=== PATIENT | female | born 1990 | race Caucasian/White ===

== ENCOUNTER 2023-05-15 17:46 | Emergency (ER) | payer OTHER, SELFPAY ==
[2023-05-15 17:50] VITALS: BP 157/103; BMI 31.1
--- NOTE | 2023-05-15 18:38 | ED.GENMED ---
History of Present Illness
<La Mahajan PA-C - Last Filed: 05/16/23 00:24>
General
Chief Complaint: Flank Pain
Source: patient
Exam Limitations: none
Time Seen by Provider: 05/15/23 18:04
Nursing documentation reviewed up to this point in time: agreed with
Travel History
Have you had any contact with someone who has COVID-19?: No
Do you have any symptoms of coronavirus? Fever > 100 degrees, chills, cough, shortness of breath, sore throat, loss of taste or smell, muscle aches, or headache?: No
History of Present Illness
History of Present Illness:
Patient is a 33-year-old female with history of UTI/kidney stones presenting for evaluation of dysuria with associated lower back pain. Symptoms started few days ago with acute worsening today. She reports lower back pain and some associated lower
abdominal pain. She has had dysuria for the past few days. No hematuria. she denies any fever, chills vomiting, diarrhea, constipation. Patient states that pain is constant without any alleviating or exacerbating factors.
Patient has a history of frequent UTIs and has a prescription for ciprofloxacin and pyrazinamide at home for which she started taking yesterday without any improvement.
Patient has had a history of kidney stones requiring surgery.
Patient does endorse recent unprotected sex with a new partner. She is requesting testing for gonorrhea and chlamydia.
Past History
<La Mahajan PA-C - Last Filed: 05/16/23 00:24>
Past History
ED Past Medical History: Cancer (Cervical), Psychiatric (Depression) and Other (UTI, kidney stones, migraine)
ED Past Surgical History: Cholecystectomy and
Social History
Tobacco: Smoker
Alcohol: Occasional
Drug: None
Personal:
Living: with family
Employment: Employed
Family History
Family History: Diabetes and Other (Kidney stones)
Phy Exam
<La Mahajan PA-C - Last Filed: 05/16/23 00:24>
Physical Exam
Physical Exam:
General: Well appearing and non-toxic
Vitals: Hypertensive, otherwise vital signs stable; afebrile
HEENT: Atraumatic, normocephalic; pupils equal round and reactive to light bilaterally, protecting airway
Neck: appears supple no JVD
CV: Regular rate and rhythm, heart sounds normal, no evidence of cyanosis
Resp: No evidence of respiratory distress, lungs clear
Abd: Soft, mildly tender in suprapubic region without rebound or guarding, non-distended; no CVA tenderness
Extremities: No deformities; no evidence of cyanosis or edema; no reproducible back pain
Neuro: alert and oriented x 3; grossly intact; strength 5 out of 5 in upper and lower extremities, sensation fully intact
Psych: Normal affect
Skin: Intact; no rashes
Course
<La Mahajan PA-C - Last Filed: 05/16/23 00:24>
Orders/Labs/Results
Orders:
Orders
05/15/23 18:39
Test Result ONCE
05/15/23 18:41
Renal & Bladder US [US Renal With Bladder] Urgent
Comment: hx kidney stones
Reason For Exam: b/l flank pain, dysuria
05/15/23 18:42
0.9% Sodium Chloride 1000 ml [Nss] 1,000 ml IV BOLUS
05/15/23 19:00
Complete Blood Count/With Diff Urgent
Comprehensive Metabolic Panel Urgent
HCG, Serum Qualitative Screen Urgent
Urinalysis Reflex To Culture Urgent
Date Specimen was Collected: 05/15/23
Time Specimen was Collected: 18:50
Urine Microscopic Reflex Cult Urgent
Chlamydia/GC by PCR Urgent
WILLIAM Source: Urine
Specimen Description:
Source:: URINE
Date Specimen was Collected: 05/15/23
Time Specimen was Collected: 18:50
Urine Culture Urgent
WILLIAM Source: U
Specimen Description:
Date Specimen was Collected: 05/15/23
Time Specimen was Collected: 18:50
05/15/23 19:28
Add On - Microbiology Urgent
Tests Added?: urine culture
Abnormal Lab Results
05/15/23
19:00
MPV 12.0 H fL
(7.4-10.4)
Potassium 3.4 L mmol/L
(3.5-5.1)
Urine Nitrite (Reflex) Positive A
(Negative)
Urine Bilirubin 2+ A
(Negative)
Urine Urobilinogen 3+ A
(Neg - 1+)
Leukocyte Esterase Rfl Trace A
(Negative)
05/15/23 19:00
05/15/23 19:00
Vital Signs
Initial and Last Documented VS:
Initial Vital Signs
Temp Pulse Resp BP Pulse Ox
98.5 F 80 16 157/103 100
05/15/23 17:50 05/15/23 17:50 05/15/23 17:50 05/15/23 17:50 05/15/23 17:50
Last Documented Vital Signs
Temp Pulse Resp BP Pulse Ox
98.5 F 70 16 123/77 97
05/15/23 17:50 05/15/23 20:55 05/15/23 17:50 05/15/23 20:55 05/15/23 20:55
<Leo Ritchie MD - Last Filed: 05/15/23 19:44>
Orders/Labs/Results
Orders:
Orders
05/15/23 18:39
Test Result ONCE
05/15/23 18:41
Renal & Bladder US [US Renal With Bladder] Urgent
Comment: hx kidney stones
Reason For Exam: b/l flank pain, dysuria
05/15/23 18:42
0.9% Sodium Chloride 1000 ml [Nss] 1,000 ml IV BOLUS
05/15/23 19:00
Complete Blood Count/With Diff Urgent
Comprehensive Metabolic Panel Urgent
HCG, Serum Qualitative Screen Urgent
Urinalysis Reflex To Culture Urgent
Date Specimen was Collected: 05/15/23
Time Specimen was Collected: 18:50
Urine Microscopic Reflex Cult Urgent
Chlamydia/GC by PCR Urgent
WILLIAM Source: Urine
Specimen Description:
Source:: URINE
Date Specimen was Collected: 05/15/23
Time Specimen was Collected: 18:50
Urine Culture Urgent
WILLIAM Source: U
Specimen Description:
Date Specimen was Collected: 05/15/23
Time Specimen was Collected: 18:50
05/15/23 19:28
Add On - Microbiology Urgent
Tests Added?: urine culture
Abnormal Lab Results
05/15/23
19:00
MPV 12.0 H fL
(7.4-10.4)
Potassium 3.4 L mmol/L
(3.5-5.1)
Urine Nitrite (Reflex) Positive A
(Negative)
Urine Bilirubin 2+ A
(Negative)
Urine Urobilinogen 3+ A
(Neg - 1+)
Leukocyte Esterase Rfl Trace A
(Negative)
05/15/23 19:00
05/15/23 19:00
Vital Signs
Initial and Last Documented VS:
Initial Vital Signs
Temp Pulse Resp BP Pulse Ox
98.5 F 80 16 157/103 100
05/15/23 17:50 05/15/23 17:50 05/15/23 17:50 05/15/23 17:50 05/15/23 17:50
Last Documented Vital Signs
Temp Pulse Resp BP Pulse Ox
98.5 F 70 16 123/77 97
05/15/23 17:50 05/15/23 20:55 05/15/23 17:50 05/15/23 20:55 05/15/23 20:55
<La Mahajan PA-C - Last Filed: 05/16/23 00:24>
MDM/Problems Addressed
Differential Diagnosis Includes:
UTI, pyelonephritis, nephrolithiasis, PID, appendicitis, muscular strain, diverticulitis, ovarian torsion
MDM/Problems Addressed:
Patient is a 33-year-old female with history of frequent UTIs and kidney stones presenting for evaluation of vague lower abdominal/back pain with associated dysuria. Symptoms have been present for the past few days. No fever, chills, vomiting,
diarrhea. Patient did start taking ciprofloxacin pyrazinamide that she had at home. Patient is nontoxic-appearing, afebrile. In no apparent distress. Physical exam as documented above. She does have mild tenderness in suprapubic region of
abdomen but abdomen is soft. Clinical suspicion for kidney stone is low. Given the fact the patient has had multiple CT scans in the past�will start with renal ultrasound to rule out hydronephrosis. Will check basic labs, urinalysis. Will add on
gonorrhea/chlamydia and urine per patient request. IV fluids. Patient declines analgesia at this time. Will reassess.
In to reassess patient. She remains stable, in no apparent distress at this time. Her labs are unremarkable. UA noted�equivocal for UTI. Given patient is symptomatic with strong history of UTI�will send urine culture. Recommended that she
continue taking the ciprofloxacin that she has at home for 3 days�can adjust medication based on urine culture, if needed.Ultrasound shows no evidence of hydronephrosis or obstructing renal calculi to explain symptoms.
Work appears been negative, patient remains in no apparent distress. Patient stable for discharge. She will follow-up with urogynecologist, Dr. Carias for evaluation of frequent UTI. Patient comfortable with this plan. All questions answered.
Chronic conditions affecting care:
Frequent UTI
Acute Exacerbation and/or Progression of Chronic Illness:
Acute cystitis
<La Mahajan PA-C - Last Filed: 05/16/23 00:24>
*Radiology
Radiology exam reviewed: radiology read reviewed
*Pulse Oximetry
Patient hypoxic: no
*EKG
Interpreted by ED Provider?: NA
*Emergency Services Director Interpretation
Rate: Emergency Services Director- N/A
*Critical Care Note
Total Time (30-74mins, 75-104mins- exclusive of procedures): Not Applicable
Data Reviewed
Further Testing Considered But Not Given:
CT scan of abdomen�suspicion low for kidney stone will start with urinalysis
ED Attending Note
<La Mahajan PA-C - Last Filed: 05/16/23 00:24>
-
Portions of this chart may have been created with voice recognition software.� Occasional wrong word or��sound alike� substitutions may have occurred due to the inherent limitations of voice recognition software.
<Leo Ritchie MD - Last Filed: 05/15/23 19:44>
ED Attending Note
Patient seen and examined by attending physician: Yes
ED Attending Note:
Patient with history of frequent UTI as well as kidney stones, presents to ED secondary to recurrent lower abdominal pain with dysuria noted over the past 12 days. Patient proceeded to take Pyridium as well as ciprofloxacin which she has at home,
without relief in symptoms. Denies fever or chills. Denies nausea or vomiting. Denies diarrhea. Denies trauma. Abdominal pain described as sharp, nonradiating, without any alleviating or exacerbating factors. Patient unsure at this time
whether or not her symptoms are similar to kidney stone related pain.
Physical Exam
General: no apparent distress, not acutely ill
Neck: supple. no meningeal signs. normal psoterior pharynx
Heart: s1/s2 regular rate and rhythm, no murmur. equal radial pulses.
Lungs: no acute respiratory distress. clear bilaterally
Abdomen: normal bowel sounds. not tender.
Neuro: alert and oriented. no focal neurological deficits
Skin: no rash
Psychiatric: well kept. interactive and cooperative
Extremities: no edema. no calf tenderness.
Patient presented to ED with vague abdominal discomfort, along with normal blood work and urinalysis. Will obtain renal ultrasound to evaluate for potential hydronephrosis. If not, patient will be discharged home and referred to [facility],
[facility], for an outpatient consultation.
Discharge Plan
Departure
Patient Disposition: Home (Routine Discharge)
Date of Disposition: 05/15/23
Time of Disposition: 21:06
Patient with high blood pressure during this ER visit?: Yes
Condition: Good
Covid-19: Not Applicable
Discharge Problem:
UTI (urinary tract infection)
Instructions: Acute Cystitis (DC), BLOOD PRESSURE
Prescriptions:
No Action
dextroamphetamine-amphetamine [Adderall] 20 MG tablet
20 mg PO TID
Patient Comments:
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
lorazepam 0.5 MG tablet
0.5 mg PO PRN PRN (Reason: anxiety)
ondansetron 4 MG tablet,disintegrating
4 mg PO TIDPRN PRN (Reason: nausea/vomiting) Qty: 12 0RF
Referrals:
Susanna Carias DO [Active] - Call in 1-3 days for appt
Rogelio Shepherd MD [Family Provider] -
Activity Restrictions/Additional Instructions:
- Return to the emergency department any high fevers, severe abdominal pain, severe back pain, intractable nausea/vomiting, worsening current symptoms, or any other concerns
-As discussed�it is possible that you have a mild UTI. We will send your urine sample for culture and call you if positive in the next few days. You can continue to take your course of ciprofloxacin that you have at home.
-It is important that you stay well-hydrated
-You should follow-up with a urologist as written above for further evaluation/management of frequent urinary tract infections
Interventions
Interventions:
*Risk Screen - Suicide Last Done: 05/15/23 17:50
*General Assessment Last Done: 05/15/23 21:13
*Neglect/Abuse Screening Last Done: 05/15/23 17:50
ED- Fall Risk Assessment Last Done: 05/15/23 21:13
*ED COVID-19 Vaccine History Last Done: 05/15/23 17:50
*Nursing Disposition Last Done: 05/15/23 21:13
HI-Korusx-Bsmxynkbfx Assessment Last Done: 05/15/23 19:34
ED-Female Genitourinary Assessment Last Done: 05/15/23 19:34
Discharge Date and Time
Discharge Date/Time: 05/15/23 21:14
[2023-05-15] MEDS: NSS 1000 IV (19:01)
[2023-05-15 19:12] LABS: % Basophils 0.7 % (0-2); % Eosinophils 4.3 % (0-6); % Immature Granulocytes 0.1 % (0-0.5); % Lymphocytes 35.9 % (20.5-51.1); % Monocytes 9.3 % (1.7-9.3); % Neutrophils 49.7 % (42.2-75.2); Absolute Basophils 0.1 10^3/uL (0-0.2); Absolute Eosinophils 0.3 10^3/uL (0-0.7); Absolute Lymphocytes 2.4 10^3/uL (1.2-3.4); Absolute Monocytes 0.6 10^3/uL (0.1-0.6); Absolute Neutrophils 3.3 10^3/uL (1.4-6.5); Hematocrit 45.3 % (37.0-47.0); Hemoglobin 15.1 g/dL (12.0-16.0); Mean Corp Hgb Conc. 33.3 g/dL (33.0-37.0); Mean Corpuscular Volume 86.9 fL (81.0-99.0); Nucleated Red Blood Cells % 0 %; Platelet Count 295 10^3/uL (130-400); Red Blood Cell Count 5.21 10^6/uL (4.20-5.40); Red Cell Dist. Width 13.8 % (11.5-14.5); Urine Albumin Negative (Neg - Trace); Urine Bilirubin 2+ (Negative); Urine Character Clear (Clear); Urine Glucose Negative (Negative); Urine Ketone Negative (Negative); Urine Leukocyte Trace (Negative); Urine Nitrite Positive (Negative); Urine Occult Blood Negative (Negative); Urine Specific Gravity 1.015 (<1.030); Urine Urobilinogen 3+ (Neg - 1+); White Blood Cell Count 6.7 10^3/uL (4.8-10.8)
[2023-05-15 19:16] LABS: Urine Color Orange
[2023-05-15 19:22] LABS: Urine Red Blood Cell None Seen /HPF (0-2); Urine Squamous Cell >30 /LPF (Few); Urine White Cell 0-2 /HPF (0-5)
[2023-05-15 19:23] LABS: HCG, Serum Qualitative Screen Negative
[2023-05-15 19:27] LABS: ALT (SGPT) 18 U/L (0-35); AST (SGOT) 20 U/L (14-36); Alkaline Phosphatase 62 U/L (38-126); Blood Urea Nitrogen 9 mg/dl (7-17); Calcium 9.5 mg/dl (8.4-10.2); Carbon Dioxide 24 mmol/L (22-30); Chloride 104 mmol/L (98-107); Estimated Creatinine Clearance 95 ml/min; Glucose 99 mg/dl (70-99); Potassium 3.4 mmol/L (3.5-5.1); Sodium 137 mmol/L (135-145); Total Bilirubin 0.2 mg/dl (0.2-1.3); Total Protein 6.8 g/dl (6.3-8.2); eGFR > 60.00
[2023-05-15 20:55] VITALS: BP 123/77
== END 2023-05-15 21:14 | disposition home or self-care (01) ==
LOC: EMR 17:46
PROVIDERS: Physician Assistant; EMERGENCY PHYSICIAN Emergency Medicine; FAMILY PHYSICIAN Family Medicine
DX: N39.0 Urinary tract infection, site not specified (principal); R30.0 Dysuria; M54.50 Low back pain, unspecified; F32.A Depression, unspecified; F17.200 Nicotine dependence, unspecified, uncomplicated; Z87.440 Personal history of urinary (tract) infections; Z87.442 Personal history of urinary calculi; Z83.3 Family history of diabetes mellitus; Z90.49 Acquired absence of other specified parts of digestive tract
CPT/HCPCS: 99284; 96360; 76770; 80053; 81003; 81015; 84703; 85025; 87086; 87491; 87591

== ENCOUNTER 2023-07-20 09:34 | Emergency (ER) | payer OTHER, SELFPAY ==
[2023-07-20 09:37] VITALS: BP 131/93
[2023-07-20 09:52] VITALS: BMI 32.0
[2023-07-20 09:57] VITALS: BP 126/66
[2023-07-20 10:00] VITALS: BP 117/83
[2023-07-20] MEDS: NSS 1000 IV (10:12)
[2023-07-20 10:29] LABS: % Basophils 0.4 % (0-2); % Eosinophils 2.9 % (0-6); % Immature Granulocytes 0.3 % (0-0.5); % Lymphocytes 27.8 % (20.5-51.1); % Monocytes 5.6 % (1.7-9.3); Absolute Eosinophils 0.3 10^3/uL (0-0.7); Absolute Lymphocytes 2.6 10^3/uL (1.2-3.4); Absolute Monocytes 0.5 10^3/uL (0.1-0.6); Absolute Neutrophils 5.8 10^3/uL (1.4-6.5); Hematocrit 46.6 % (37.0-47.0); Hemoglobin 16.2 g/dL (12.0-16.0); Mean Corp Hgb Conc. 34.8 g/dL (33.0-37.0); Mean Corpuscular Hgb 29.6 pg (27.0-31.0); Mean Corpuscular Volume 85.2 fL (81.0-99.0); Mean Platelet Volume 11.4 fL (7.4-10.4); Nucleated Red Blood Cells % 0 %; Platelet Count 313 10^3/uL (130-400); Red Blood Cell Count 5.47 10^6/uL (4.20-5.40); Red Cell Dist. Width 13.8 % (11.5-14.5); White Blood Cell Count 9.2 10^3/uL (4.8-10.8)
[2023-07-20 10:39] LABS: HCG, Serum Qualitative Screen Negative
[2023-07-20 10:42] LABS: ALT (SGPT) 34 U/L (0-35); AST (SGOT) 31 U/L (14-36); Albumin 4.5 g/dl (3.5-5.0); Alkaline Phosphatase 69 U/L (38-126); Blood Urea Nitrogen 11 mg/dl (7-17); Calcium 9.5 mg/dl (8.4-10.2); Carbon Dioxide 24 mmol/L (22-30); Chloride 109 mmol/L (98-107); Estimated Creatinine Clearance > 125 ml/min; Glucose 97 mg/dl (70-99); Lipase 251 U/L (23-300); Potassium 4.4 mmol/L (3.5-5.1); Sodium 140 mmol/L (135-145); Total Bilirubin 0.5 mg/dl (0.2-1.3); Total Protein 7.8 g/dl (6.3-8.2); eGFR > 60.00
[2023-07-20] MEDS: TORADOL 30 MG IM (11:07)
--- NOTE | 2023-07-20 11:25 | ED.GENMED ---
History of Present Illness
General
Chief Complaint: Abdominal Pain
Source: patient
Exam Limitations: none
Time Seen by Provider: 07/20/23 09:49
Nursing documentation reviewed up to this point in time: agreed with
Travel History
Have you had any contact with someone who has COVID-19?: No
Do you have any symptoms of coronavirus? Fever > 100 degrees, chills, cough, shortness of breath, sore throat, loss of taste or smell, muscle aches, or headache?: No
History of Present Illness
History of Present Illness:
33 yo female with hx diverticulitis, kidney stones, cholecystectomy presents with bilateral low back pain for past 2 days. No recollection of overuse, she has been gardening. Denies fever/chills, denies UTI symptoms (she is familiar as she has had
UTI's in past), denies any new abdominal pain, has chronic abdominal pain and 'stomach issues' followed by [facility].
Past History
Past History
ED Past Medical History: Cancer (Cervical), Psychiatric (Depression) and Other (UTI, kidney stones, migraine)
ED Past Surgical History: Cholecystectomy, and Gynecological (cryosurgery and ablation for abnormal cervical cells)
Social History
Tobacco: Smoker
Alcohol: Occasional
Drug: None
Personal:
Living: with family
Employment: Employed
Family History
Family History: Diabetes and Other (Kidney stones)
Review of Systems
Review of Systems
Allergies reviewed?: Yes
All Other Systems: ROS reviewed and negative except as documented in HPI and ROS
Constitutional: Denies fever
Respiratory: Denies trouble breathing
Cardiac: Denies chest pain
ABD/GI: Reports abdominal pain (chronic, nothing new); Denies nausea or vomiting
: Denies dysuria, frequency, flank pain, difficulty voiding or urgency
Musculoskeletal: Reports back pain (across lower back and in between shoulder blades); Denies neck pain
Skin: Reports no symptoms
Neurological: Reports no symptoms
Phy Exam
Physical Exam
Physical Exam:
GENERAL: No acute distress. A&Ox3.
CONSTITUTIONAL: Afebrile.
EYES: clearL, conjunctivae normal
Neck: Supple
ENMT: moist mucus membranes, Pharynx nl
RESPIRATORY: Regular respirations, nonlabored, lungs clear.
CARDIOVASCULAR: Regular rate and rhythm, no murmurs, no rubs.
GI: Soft, nontender, normal BS
MUSCULOSKELETAL: No significant tenderness to palpation of lower back. OOB and ambulating well. Moves with ease. Well perfused.
SKIN: Warm, dry, pink
PSYCH: Normal mood and affect. Well kept, interactive and appropriate
NEUROLOGIC: Awake, alert and oriented. No focal neurological deficits
Course
Orders/Labs/Results
Orders:
Orders
07/20/23 09:50
0.9% Sodium Chloride 1000 ml [Nss] 1,000 ml IV BOLUS
Test Result ONCE
07/20/23 10:11
Complete Blood Count/With Diff Urgent
Comprehensive Metabolic Panel Urgent
HCG, Serum Qualitative Screen Urgent
Lipase Urgent
07/20/23 10:21
Ketorolac [Toradol] 30 mg IM NOW STA
Abnormal Lab Results
07/20/23
10:11
RBC 5.47 H 10^6/uL
(4.20-5.40)
Hgb 16.2 H g/dL
(12.0-16.0)
MPV 11.4 H fL
(7.4-10.4)
Chloride 109 H mmol/L
(98-107)
07/20/23 10:11
07/20/23 10:11
Vital Signs
Initial and Last Documented VS:
Initial Vital Signs
Temp Pulse Resp BP Pulse Ox
97.6 F 80 16 131/93 99
07/20/23 09:37 07/20/23 09:37 07/20/23 09:37 07/20/23 09:37 07/20/23 09:37
Last Documented Vital Signs
Temp Pulse Resp BP Pulse Ox
97.6 F 80 16 117/83 82
07/20/23 09:37 07/20/23 09:37 07/20/23 09:37 07/20/23 10:00 07/20/23 11:03
MDM/Problems Addressed
Differential Diagnosis Includes:
low back strain, kidney stone, UTI
MDM/Problems Addressed:
33 yo female with hx diverticulitis, kidney stones, cholecystectomy presents with bilateral low back pain for past 2 days. No recollection of overuse, she has been gardening. Denies fever/chills, denies UTI symptoms (she is familiar as she has had
UTI's in past), denies any new abdominal pain, has chronic abdominal pain and 'stomach issues' followed by [facility].
No flank pain, no UTI symptoms, pain is bilateral and lower, do not suspect kidney stones or UTI
CBC normal
CMP normal
HCG neg
Pt states she is only here for the back pain, offered workup for diverticulitis but she declines stating her abdominal symptoms are chronic.
After Toradol IM, pt states much relief, OOB and ambulating, moving around normally
*Critical Care Note
Total Time (30-74mins, 75-104mins- exclusive of procedures): Not Applicable
ED Attending Note
-
Portions of this chart may have been created with voice recognition software.� Occasional wrong word or��sound alike� substitutions may have occurred due to the inherent limitations of voice recognition software.
Discharge Plan
Departure
Patient Disposition: Home (Routine Discharge)
Date of Disposition: 07/20/23
Time of Disposition: 11:30
Patient with high blood pressure during this ER visit?: No
Condition: Good
Discharge Problem:
Low back pain
Instructions: Back Exercises, Low Back Pain ED
Prescriptions:
New
ketorolac 10 mg tablet
10 mg PO Q8H PRN (Reason: Pain) 1 Days Qty: 30 0RF
cyclobenzaprine 10 mg tablet
10 mg PO BID PRN (Reason: back pain, spasms) Qty: 14 0RF
No Action
dextroamphetamine-amphetamine [Adderall] 20 MG tablet
20 mg PO TID
Patient Comments:
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
lorazepam 0.5 MG tablet
0.5 mg PO PRN PRN (Reason: anxiety)
ondansetron 4 MG tablet,disintegrating
4 mg PO TIDPRN PRN (Reason: nausea/vomiting) Qty: 12 0RF
Referrals:
Rogelio Shepherd MD [Family Provider] - As needed
Activity Restrictions/Additional Instructions:
As we discussed, I sent a prescription for Toradol pain medication to your pharmacy I also sent a prescription for Flexeril muscle relaxant to your pharmacy. Flexeril can make you sleepy and slow the reflexes so do not drive or operate any
machinery within 8 hours of taking it. Heating pad may help.
Interventions
Interventions:
*Risk Screen - Suicide Last Done: 07/20/23 09:37
*General Assessment Last Done: 07/20/23 09:37
*Neglect/Abuse Screening Last Done: 07/20/23 09:40
ED- Fall Risk Assessment Last Done: 07/20/23 09:52
*ED COVID-19 Vaccine History Last Done: 07/20/23 09:52
*Nursing Disposition Last Done: 07/20/23 11:42
ND-Wiwzwz-Tnrowoetux Assessment Last Done: 07/20/23 09:52
Discharge Date and Time
Discharge Date/Time: 07/20/23 11:43
Print Language: JAPANESE
== END 2023-07-20 11:43 | disposition home or self-care (01) ==
LOC: EMR 09:34
PROVIDERS: Registered Nurse; EMERGENCY PHYSICIAN Student in an Organized Health Care Education/Training Program; FAMILY PHYSICIAN Family Medicine
DX: M54.50 Low back pain, unspecified (principal); R10.9 Unspecified abdominal pain; K57.92 Diverticulitis of intestine, part unspecified, without perforation or abscess without bleeding; F32.A Depression, unspecified; G43.909 Migraine, unspecified, not intractable, without status migrainosus; F17.210 Nicotine dependence, cigarettes, uncomplicated; Z85.41 Personal history of malignant neoplasm of cervix uteri; Z87.442 Personal history of urinary calculi; Z87.440 Personal history of urinary (tract) infections; Z90.49 Acquired absence of other specified parts of digestive tract
CPT/HCPCS: 99284; 96360; 96372; 80053; 83690; 84703; 85025

== ENCOUNTER 2023-11-18 13:23 | Emergency (ER) | payer OTHER, SELFPAY ==
[2023-11-18 13:26] VITALS: BP 144/100
[2023-11-18 13:52] LABS: % Basophils 0.6 % (0-2); % Eosinophils 5.7 % (0-6); % Immature Granulocytes 0.5 % (0-0.5); % Lymphocytes 25.7 % (20.5-51.1); % Monocytes 5.1 % (1.7-9.3); % Neutrophils 62.4 % (42.2-75.2); Absolute Basophils 0.1 10^3/uL (0-0.2); Absolute Eosinophils 0.6 10^3/uL (0-0.7); Absolute Immature Granulocytes 0.1 10^3/uL (0-0.05); Absolute Lymphocytes 2.7 10^3/uL (1.2-3.4); Absolute Monocytes 0.5 10^3/uL (0.1-0.6); Absolute Neutrophils 6.6 10^3/uL (1.4-6.5); Hematocrit 46.3 % (37.0-47.0); Hemoglobin 15.7 g/dL (12.0-16.0); Mean Corp Hgb Conc. 33.9 g/dL (33.0-37.0); Mean Corpuscular Hgb 30.2 pg (27.0-31.0); Mean Platelet Volume 11.1 fL (7.4-10.4); Nucleated Red Blood Cells % 0 %; Platelet Count 361 10^3/uL (130-400); Red Cell Dist. Width 13.4 % (11.5-14.5); White Blood Cell Count 10.5 10^3/uL (4.8-10.8)
[2023-11-18 13:53] LABS: Urine Albumin Negative (Neg - Trace); Urine Bilirubin Negative (Negative); Urine Character Clear (Clear); Urine Color Yellow; Urine Glucose Negative (Negative); Urine Ketone Negative (Negative); Urine Leukocyte Negative (Negative); Urine Nitrite Negative (Negative); Urine Occult Blood Negative (Negative); Urine Urobilinogen Negative (Neg - 1+); Urine pH 6.5 (5.0-9.0)
--- NOTE | 2023-11-18 14:12 | ED.GENMED ---
History of Present Illness
General
Chief Complaint: Abdominal Pain
Source: patient
Exam Limitations: none
Time Seen by Provider: 11/18/23 13:59
Nursing documentation reviewed up to this point in time: agreed with
History of Present Illness
History of Present Illness:
33-year-old female with past medical history of cervical cancer status post hysterectomy last week who presents to the ER for evaluation of lower abdominal pain. Patient had laparoscopic hysterectomy at [facility] for cervical cancer on 11/12/2023.
She says that over the past few days she has started to notice pain in the lower abdomen�she describes a 'burning and pinching' sensation 'on the inside' of her lower abdomen. She reports that she has had some diarrhea. She has had some nausea.
No vomiting. She denies any vaginal bleeding or discharge. She denies any dysuria, hematuria, change in urinary frequency. She denies any fevers or chills. She denies any other complaints. She says she called her surgeon and was referred to the
ER.
Past History
Past History
ED Past Medical History: Cancer (Cervical), Psychiatric (Depression) and Other (UTI, kidney stones, migraine)
ED Past Surgical History: Cholecystectomy, and Gynecological (cryosurgery and ablation for abnormal cervical cells)
Social History
Tobacco: Smoker
Alcohol: Occasional
Drug: None
Personal:
Living: with family
Employment: Employed
Family History
Family History: Diabetes and Other (Kidney stones)
Review of Systems
Review of Systems
All Other Systems: ROS reviewed and negative except as documented in HPI and ROS
Constitutional: Denies fever or chills
Respiratory: Denies cough or trouble breathing
Cardiac: Denies chest pain or palpitations
ABD/GI: Reports abdominal pain, nausea and diarrhea; Denies vomiting
: Denies dysuria, frequency, flank pain or bleeding
Musculoskeletal: Denies neck pain or back pain
Neurological: Denies dizzy or headache
Phy Exam
Physical Exam
Physical Exam:
General: Awake, alert, oriented x3; no acute distress
Head: Normocephalic, atraumatic
Eyes: Conjunctiva normal
Throat: Airway intact, handling secretions
Neck: Trachea midline, supple without meningismus
Lungs: Clear to auscultation bilaterally, no wheezing, rales, rhonchi
Heart: Regular rate and rhythm, no murmurs, gallops, or rubs
Abd: Soft, non distended, minimally tender in the suprapubic region; she has 3 laparoscopic incisions which are well-healing, some surrounding ecchymosis but no erythema, warmth, tenderness of the incisions and no drainage from the incisions or
dehiscence
Back: No CVA tenderness
Neuro: No gross deficits
Skin: no rash
Extremities: No edema in extremities, warm and well-perfused
Scores
Heart Failure Risk
Heart Failure Risk Score: Not Applicable
Heart Score for Chest Pain Patients
STEMI patient?: Not applicable
Withdrawal Assessment of Alcohol
Withdrawal Assessment Completed?: Not applicable
Course
Orders/Labs/Results
Orders:
Orders
11/18/23 13:35
Urinalysis Reflex To Culture Urgent
Date Specimen was Collected: 11/18/23
Time Specimen was Collected: 13:29
11/18/23 13:36
Complete Blood Count/With Diff Urgent
Comprehensive Metabolic Panel Urgent
11/18/23 14:00
CT Abd/pelvis W Iv Cont Urgent
Comment:
Reason For Exam: lower abd pain s/p hysterectomy
11/18/23 16:36
Amoxicillin 875 mg/Clav 125 mg [Augmentin 875 mg/125 mg] 1 tablet PO NOW STA
Abnormal Lab Results
11/18/23
13:36
MPV 11.1 H fL
(7.4-10.4)
Abs Immat Gran (auto) 0.1 H 10^3/uL
(0-0.05)
Absolute Neuts (auto) 6.6 H 10^3/uL
(1.4-6.5)
Carbon Dioxide 21 L mmol/L
(22-30)
Glucose 114 H mg/dl
(70-99)
AST 47 H U/L
(14-36)
ALT 58 H U/L
(0-35)
11/18/23 13:36
11/18/23 13:36
Vital Signs
Initial and Last Documented VS:
Initial Vital Signs
Temp Pulse Resp BP Pulse Ox
36.7 C 90 16 144/100 98
11/18/23 13:26 11/18/23 13:26 11/18/23 13:26 11/18/23 13:26 11/18/23 13:26
Last Documented Vital Signs
Temp Pulse Resp BP Pulse Ox
36.7 C 65 18 139/103 98
11/18/23 13:26 11/18/23 14:29 11/18/23 14:29 11/18/23 14:21 11/18/23 14:21
MDM/Problems Addressed
Differential Diagnosis Includes:
Incisional pain/postoperative pain, abdominal wall hematoma, hernia, postoperative infection including UTI, constipation
MDM/Problems Addressed:
33-year-old female presents 1 week removed from laparoscopic hysterectomy for cervical cancer that she presents with lower abdominal burning/pinching pain. Vital signs significant for mild hypertension otherwise normal. Physical exam as
above�notably her incisions appear clean with no signs of infection or dehiscence. Will check CBC and CMP, urinalysis. Check CT abdomen. Reassess after the above.
Labs reviewed: CBC unremarkable, CMP marginal elevation of transaminases unlikely of acute clinical significance�follow-up with PCP. Urinalysis negative for infection. CT abdomen pelvis shows trace residual pneumoperitoneum from recent
laparoscopy; there is some sort of ventral thickening of the rectum and sigmoid colon and in conjunction with her report of diarrhea and pain in this area I suspect this is the etiology of her symptoms. Could be reactive from recent surgery but
will cover with antibiotics as well. Stable for discharge at this point, follow-up with surgeon as an outpatient. Patient comfortable with this plan. All questions answered.
Acute Exacerbation and/or Progression of Chronic Illness:
Acutely hypertensive with no signs or symptoms of hypertensive emergency; no indication for emergent antihypertensive therapy in the ER
Acute Exacerbation and/or Progression of Chronic Illness: HTN
*Radiology
Radiology exam reviewed: radiology read reviewed
*Pulse Oximetry
Patient hypoxic: no
*Critical Care Note
Total Time (30-74mins, 75-104mins- exclusive of procedures): Not Applicable
Data Reviewed
Source: patient and records
ED Attending Note
-
Portions of this chart may have been created with voice recognition software.� Occasional wrong word or��sound alike� substitutions may have occurred due to the inherent limitations of voice recognition software.
Discharge Plan
Departure
Patient Disposition: Home (Routine Discharge)
Date of Disposition: 11/18/23
Time of Disposition: 16:42
Patient with high blood pressure during this ER visit?: Yes
Discharge Problem:
Colitis
Instructions: Acute Diarrhea, Abdominal Pain
Prescriptions:
New
amoxicillin-pot clavulanate 875-125 mg tablet
1 tab PO BID Qty: 14 0RF
No Action
dextroamphetamine-amphetamine [Adderall] 20 MG tablet
20 mg PO TID
Patient Comments:
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
lorazepam 0.5 MG tablet
0.5 mg PO PRN PRN (Reason: anxiety)
ondansetron 4 MG tablet,disintegrating
4 mg PO TIDPRN PRN (Reason: nausea/vomiting) Qty: 12 0RF
ketorolac 10 mg tablet
10 mg PO Q8H PRN (Reason: Pain) 1 Days Qty: 30 0RF
cyclobenzaprine 10 mg tablet
10 mg PO BID PRN (Reason: back pain, spasms) Qty: 14 0RF
Referrals:
Rogelio Shepherd MD [Family Provider] - Call in 1-3 days for appt
Activity Restrictions/Additional Instructions:
Thank you for visiting the Emergency Department at [facility].
1. Please schedule a follow up appointment as directed. Call first thing tomorrow morning to make an appointment.
2. If indicated, please take your medications as instructed and indicated on discharge paperwork.
3. If any of your symptoms do not improve, or persist, or become more severe within 6-12 hours, please return to the emergency department for further care.
4. Please return to the emergency department if you develop a headache, neck pain/stiffness, fever greater than 100.4F, chest pain, shortness of breath, persistent nausea, vomiting, slurred speech, difficulty walking, numbness/tingling, weakness,
signs of infection or any other symptoms that are worrisome to you.
Please call [phone] if you have any questions.
Interventions
Interventions:
*Risk Screen - Suicide Last Done: 11/18/23 13:27
*General Assessment Last Done: 11/18/23 14:29
*Neglect/Abuse Screening Last Done: 11/18/23 13:27
*ED COVID-19 Vaccine History Last Done: 11/18/23 14:29
K[facility]-Cwwhiw-Bajpucmhax Assessment Last Done: 11/18/23 14:29
Discharge Date and Time
Print Language: ROMANSH
[2023-11-18 14:21] VITALS: BP 139/103
[2023-11-18 14:24] LABS: ALT (SGPT) 58 U/L (0-35); AST (SGOT) 47 U/L (14-36); Albumin 4.4 g/dl (3.5-5.0); Alkaline Phosphatase 65 U/L (38-126); Blood Urea Nitrogen 9 mg/dl (7-17); Calcium 10.1 mg/dl (8.4-10.2); Carbon Dioxide 21 mmol/L (22-30); Chloride 105 mmol/L (98-107); Glucose 114 mg/dl (70-99); Sodium 141 mmol/L (135-145); Total Bilirubin 0.4 mg/dl (0.2-1.3); Total Protein 7.5 g/dl (6.3-8.2); eGFR > 60.00
[2023-11-18 15:00] VITALS: BP 140/103
[2023-11-18] MEDS: AUGMENTIN 875 MG/125 MG 1 TABLET PO (16:56)
[2023-11-18 16:57] VITALS: BP 125/82
== END 2023-11-18 17:05 | disposition home or self-care (01) ==
LOC: EMR 13:23
PROVIDERS: EMERGENCY PHYSICIAN Emergency Medicine; FAMILY PHYSICIAN Family Medicine
DX: K52.9 Noninfective gastroenteritis and colitis, unspecified (principal); C53.9 Malignant neoplasm of cervix uteri, unspecified; F17.200 Nicotine dependence, unspecified, uncomplicated; Z90.710 Acquired absence of both cervix and uterus; Z90.49 Acquired absence of other specified parts of digestive tract
CPT/HCPCS: 99284; 74177; 80053; 81003; 85025; Q9967

== ENCOUNTER 2024-04-08 17:49 | Emergency (ER) | payer OTHER, SELFPAY ==
[2024-04-08 17:57] VITALS: BP 132/88
[2024-04-08 18:18] LABS: % Basophils 0.3 % (0-2); % Eosinophils 1.5 % (0-6); % Immature Granulocytes 0.2 % (0-0.5); % Lymphocytes 32.6 % (20.5-51.1); % Monocytes 6.3 % (1.7-9.3); % Neutrophils 59.1 % (42.2-75.2); Absolute Eosinophils 0.2 10^3/uL (0-0.7); Absolute Monocytes 0.8 10^3/uL (0.1-0.6); Absolute Neutrophils 7.2 10^3/uL (1.4-6.5); Hematocrit 46.3 % (37.0-47.0); Hemoglobin 15.9 g/dL (12.0-16.0); Mean Corp Hgb Conc. 34.3 g/dL (33.0-37.0); Mean Corpuscular Volume 84.5 fL (81.0-99.0); Mean Platelet Volume 10.8 fL (7.4-10.4); Nucleated Red Blood Cells % 0 %; Platelet Count 341 10^3/uL (130-400); Red Blood Cell Count 5.48 10^6/uL (4.20-5.40); Red Cell Dist. Width 13.6 % (11.5-14.5); White Blood Cell Count 12.2 10^3/uL (4.8-10.8)
[2024-04-08 18:36] LABS: ALT (SGPT) 27 U/L (0-35); AST (SGOT) 27 U/L (14-36); Albumin 4.5 g/dl (3.5-5.0); Alkaline Phosphatase 73 U/L (38-126); Blood Urea Nitrogen 9 mg/dl (7-17); Calcium 9.5 mg/dl (8.4-10.2); Carbon Dioxide 22 mmol/L (22-30); Chloride 106 mmol/L (98-107); Glucose 103 mg/dl (70-99); Potassium 3.7 mmol/L (3.5-5.1); Sodium 138 mmol/L (135-145); Total Bilirubin 0.6 mg/dl (0.2-1.3); Total Protein 7.9 g/dl (6.3-8.2); eGFR > 60.00
[2024-04-08 18:41] LABS: Troponin I < 0.012 ng/ml
--- NOTE | 2024-04-08 19:33 | ED.GENMED ---
History of Present Illness
General
Chief Complaint: Chest Pain
Source: patient
Exam Limitations: none
Time Seen by Provider: 04/08/24 19:06
Nursing documentation reviewed up to this point in time: agreed with except (Triage note mentions pain on the left side of the body-patient reports pain is on her right)
History of Present Illness
History of Present Illness:
34-year-old female with history of cervical cancer status post hysterectomy who presents to the emergency room for evaluation of chest pain. Patient reports symptoms started yesterday evening lasted for a few hours and then seem to resolve and then
returned again today. She reports a sharp pain in the left upper chest as well as a pain in the right scapular region and pain shooting up the right arm and the right leg. She reports associated brain fog/malaise. Earlier this evening had some
nausea and dry heaving. She denies any shortness of breath. She denies any dizziness/lightheadedness. She denies any pain in the neck. She denies any weakness in the extremities. No edema in the legs. She denies having had similar symptoms in
the past.
Past History
Past History
ED Past Medical History: Cancer (Cervical), Psychiatric (Depression) and Other (UTI, kidney stones, migraine)
ED Past Surgical History: Cholecystectomy, and Gynecological (cryosurgery and ablation for abnormal cervical cells)
Social History
Tobacco: Smoker
Alcohol: Occasional
Drug: None
Personal:
Living: with family
Employment: Employed
Family History
Family History: Diabetes and Other (Kidney stones)
Review of Systems
Review of Systems
All Other Systems: ROS reviewed and negative except as documented in HPI and ROS
Constitutional: Denies fever or chills
Respiratory: Denies cough or trouble breathing
Cardiac: Reports chest pain; Denies palpitations or syncope
ABD/GI: Reports nausea and vomiting; Denies abdominal pain or diarrhea
: Denies flank pain
Musculoskeletal: Reports joint pain (Shoulder pain, arm pain, leg pain); Denies neck pain or back pain
Neurological: Denies headache
Phy Exam
Physical Exam
Physical Exam:
General: Awake, alert, oriented x3; no acute distress
Head: Normocephalic, atraumatic
Eyes: Conjunctiva normal, sclera anicteric
Throat: Airway intact, handling secretions
Neck: Trachea midline, supple without meningismus; no tenderness of the cervical spine
Back: No reproducible tenderness in the back or scapular region
Lungs: Clear to auscultation bilaterally, no wheezing, rales, rhonchi
Heart: Regular rate and rhythm, no murmurs, gallops, or rubs appreciated
Abd: Soft, non distended, nontender
Neuro: No gross deficits
Extremities: No edema in extremities, no calf tenderness, equal pulses in all extremities
Scores
Heart Failure Risk
Heart Failure Risk Score: Not Applicable
Heart Score for Chest Pain Patients
STEMI patient?: No
History: Slightly or Non-Suspicious
ECG: Normal
Age: </= 45 years
Risk Factors: 1 or 2 Risk Factors
Troponin: </= Normal Limit
Heart Score for Chest Pain Patients: 1
Heart Score Risk: 2.5% MACE over next 6 weeks
Withdrawal Assessment of Alcohol
Withdrawal Assessment Completed?: Not applicable
Course
Orders/Labs/Results
Orders:
Orders
04/08/24 17:50
ECG [Electrocardiogram (*1)] Urgent
Reason for Study: Chest Pain
EKG- Treatment ONCE
04/08/24 18:06
Complete Blood Count/With Diff Urgent
Comprehensive Metabolic Panel Urgent
HCG, Serum Qualitative Screen Urgent
Comment: ADD ON
Troponin I Urgent
04/08/24 19:31
CT Chest PE Study Urgent
Comment:
Reason For Exam: chest pain, SOB
04/08/24 19:32
Add On- LAB Urgent
Tests Added?: HCG qual
04/08/24 22:13
Urinalysis Reflex To Culture Urgent
Date Specimen was Collected: 04/08/24
Time Specimen was Collected: 22:08
Urine Microscopic Reflex Cult Urgent
Abnormal Lab Results
04/08/24 04/08/24
18:06 22:13
WBC 12.2 H 10^3/uL
(4.8-10.8)
RBC 5.48 H 10^6/uL
(4.20-5.40)
MPV 10.8 H fL
(7.4-10.4)
Absolute Neuts (auto) 7.2 H 10^3/uL
(1.4-6.5)
Absolute Lymphs (auto) 4.0 H 10^3/uL
(1.2-3.4)
Absolute Monos (auto) 0.8 H 10^3/uL
(0.1-0.6)
Glucose 103 H mg/dl
(70-99)
Urine Bacteria (Reflex) Few A
(Negative)
Urine Albumin (Reflex) 2+ A
(Neg - Trace)
04/08/24 18:06
04/08/24 18:06
Vital Signs
Initial and Last Documented VS:
Initial Vital Signs
Temp Pulse Resp BP Pulse Ox
36.7 C 76 20 132/88 99
04/08/24 17:57 04/08/24 17:57 04/08/24 17:57 04/08/24 17:57 04/08/24 17:57
Last Documented Vital Signs
Temp Pulse Resp BP Pulse Ox
36.8 C 74 19 108/74 97
04/08/24 19:53 04/08/24 22:30 04/08/24 22:30 04/08/24 21:00 04/08/24 21:00
MDM/Problems Addressed
Differential Diagnosis Includes:
Costochondritis, cervical/thoracic radiculopathy, pneumothorax, pneumonia, PE, GERD/gastritis, aorta dissection considered less likely clinically, ACS considered less likely clinically
MDM/Problems Addressed:
34-year-old female presents for evaluation of atypical left-sided chest pain radiates towards the right scapula associated with shooting pains of the right arm and right leg. Had transient symptoms last night more consistent since this afternoon.
Vitals and exam as above. EKG shows sinus rhythm with no STEMI. Labs sent in triage including a CBC which showed slight leukocytosis, CMP no clinically significant abnormalities. Troponin undetectable x 1 and with symptoms since last night and
constant this whole afternoon this is sufficient to rule out acute IN. Check CTA of the chest. Monitor on telemetry. Reassess after the above.
CTA chest negative for PE or any other acute pathology. On clinical reassessment patient says that her symptoms have resolved. She has normal vital signs. Low suspicion for emergent pathology at this point. She could have thoracic nerve
impingement or radiculopathy causing shooting pains. We can trial Medrol Dosepak. Advised her to avoid heavy lifting and to relax. Follow-up with her primary doctor. She feels comfortable with this plan. Spoke about return precautions all
questions answered.
*Radiology
Radiology exam reviewed: radiology read reviewed
*Pulse Oximetry
Patient hypoxic: no
*EKG
Interpreted by ED Provider?: Yes
Heart Rate: 73
Rate: normal
Rhythm: sinus
[place]: normal axis
Interval: normal interval
QRS Pattern: normal QRS
Ischemia: no ischemia
*Critical Care Note
Total Time (30-74mins, 75-104mins- exclusive of procedures): Not Applicable
Data Reviewed
Review of Other/Old Records Reveals: Labs and Records
Source: patient and records
ED Attending Note
-
Portions of this chart may have been created with voice recognition software.� Occasional wrong word or��sound alike� substitutions may have occurred due to the inherent limitations of voice recognition software.
Discharge Plan
Departure
Patient Disposition: Home (Routine Discharge)
Date of Disposition: 04/08/24
Time of Disposition: 23:15
Patient with high blood pressure during this ER visit?: No
Discharge Problem:
Chest pain
Instructions: Chest Pain PCP Follow Up
Prescriptions:
New
methylprednisolone [Medrol (Mt)] 4 mg tablets,dose pack
See Rx Instructions .ROUTE .COMPLEX Qty: 21 0RF
Rx Instructions:
orally per package directions
No Action
dextroamphetamine-amphetamine [Adderall] 20 MG tablet
20 mg PO TID
Patient Comments:
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
lorazepam 0.5 MG tablet
0.5 mg PO PRN PRN (Reason: anxiety)
ondansetron 4 MG tablet,disintegrating
4 mg PO TIDPRN PRN (Reason: nausea/vomiting) Qty: 12 0RF
ketorolac 10 mg tablet
10 mg PO Q8H PRN (Reason: Pain) 1 Days Qty: 30 0RF
cyclobenzaprine 10 mg tablet
10 mg PO BID PRN (Reason: back pain, spasms) Qty: 14 0RF
amoxicillin-pot clavulanate 875-125 mg tablet
1 tab PO BID Qty: 14 0RF
Referrals:
Rogelio Shepherd MD [Family Provider] - Follow up in 5-7 days
Activity Restrictions/Additional Instructions:
Thank you for visiting the Emergency Department at [facility].
1. Please schedule a follow up appointment as directed. Call first thing tomorrow morning to make an appointment.
2. If indicated, please take your medications as instructed and indicated on discharge paperwork.
3. If any of your symptoms do not improve, or persist, or become more severe within 6-12 hours, please return to the emergency department for further care.
4. Please return to the emergency department if you develop a headache, neck pain/stiffness, fever greater than 100.4F, chest pain, shortness of breath, persistent nausea, vomiting, slurred speech, difficulty walking, numbness/tingling, weakness,
signs of infection or any other symptoms that are worrisome to you.
Please call [phone] if you have any questions.
Interventions
Interventions:
*Risk Screen - Suicide Last Done: 04/08/24 17:53
*General Assessment Last Done: 04/08/24 17:53
*Neglect/Abuse Screening Last Done: 04/08/24 17:53
*ED COVID-19 Vaccine History Last Done: 04/08/24 22:40
ED- Cardiac Assessment Last Done: 04/08/24 20:33
Discharge Date and Time
Print Language: KAZAKH
[2024-04-08 19:52] VITALS: BP 114/82
[2024-04-08 19:53] VITALS: BP 114/82
[2024-04-08 20:00] VITALS: BP 124/79
[2024-04-08 20:21] LABS: HCG, Serum Qualitative Screen Negative
[2024-04-08 21:00] VITALS: BP 108/74
[2024-04-08 22:44] LABS: Urine Albumin 2+ (Neg - Trace); Urine Bilirubin Negative (Negative); Urine Character Clear (Clear); Urine Color Yellow; Urine Glucose Negative (Negative); Urine Ketone Negative (Negative); Urine Leukocyte Negative (Negative); Urine Nitrite Negative (Negative); Urine Occult Blood Negative (Negative); Urine Urobilinogen 1+ (Neg - 1+); Urine pH 6.5 (5.0-9.0)
[2024-04-08 23:04] LABS: Urine Bacteria Few (Negative); Urine Red Blood Cell 0-2 /HPF (0-2); Urine White Cell 0-2 /HPF (0-5)
== END 2024-04-08 23:27 | disposition home or self-care (01) ==
LOC: EMR 17:49
PROVIDERS: Emergency Medicine; EMERGENCY PHYSICIAN Emergency Medicine; FAMILY PHYSICIAN Family Medicine
DX: R07.89 Other chest pain (principal); F17.200 Nicotine dependence, unspecified, uncomplicated; Z83.3 Family history of diabetes mellitus; Z85.41 Personal history of malignant neoplasm of cervix uteri; Z90.49 Acquired absence of other specified parts of digestive tract
CPT/HCPCS: 99284; 71275; 80053; 81003; 81015; 84484; 84703; 85025; 93005; Q9967

== ENCOUNTER 2024-07-14 16:13 | Emergency (ER) | payer OTHER, SELFPAY ==
[2024-07-14 16:18] VITALS: BP 142/94
[2024-07-14 16:35] LABS: % Basophils 0.5 % (0-2); % Eosinophils 1.4 % (0-6); % Immature Granulocytes 0.2 % (0-0.5); % Lymphocytes 30.9 % (20.5-51.1); % Monocytes 6.3 % (1.7-9.3); % Neutrophils 60.7 % (42.2-75.2); Absolute Basophils 0.1 10^3/uL (0-0.2); Absolute Eosinophils 0.1 10^3/uL (0-0.7); Absolute Lymphocytes 3.1 10^3/uL (1.2-3.4); Absolute Monocytes 0.6 10^3/uL (0.1-0.6); Absolute Neutrophils 6.2 10^3/uL (1.4-6.5); Hematocrit 48.2 % (37.0-47.0); Hemoglobin 16.7 g/dL (12.0-16.0); Mean Corp Hgb Conc. 34.6 g/dL (33.0-37.0); Mean Corpuscular Hgb 29.7 pg (27.0-31.0); Mean Corpuscular Volume 85.8 fL (81.0-99.0); Mean Platelet Volume 11.6 fL (7.4-10.4); Nucleated Red Blood Cells % 0 %; Platelet Count 354 10^3/uL (130-400); Red Blood Cell Count 5.62 10^6/uL (4.20-5.40); Red Cell Dist. Width 13.2 % (11.5-14.5); White Blood Cell Count 10.1 10^3/uL (4.8-10.8)
[2024-07-14 16:47] LABS: HCG, Serum Qualitative Screen Negative
[2024-07-14 16:51] LABS: ALT (SGPT) 51 U/L (0-35); AST (SGOT) 36 U/L (14-36); Alkaline Phosphatase 66 U/L (38-126); Blood Urea Nitrogen 5 mg/dl (7-17); Carbon Dioxide 24 mmol/L (22-30); Chloride 108 mmol/L (98-107); Glucose 94 mg/dl (70-99); Potassium 4.2 mmol/L (3.5-5.1); Sodium 140 mmol/L (135-145); Total Bilirubin 0.9 mg/dl (0.2-1.3); Total Protein 8.5 g/dl (6.3-8.2); eGFR > 60.00
== END 2024-07-14 22:02 ==
LOC: EMR 16:13
PROVIDERS: EMERGENCY PHYSICIAN Student in an Organized Health Care Education/Training Program; FAMILY PHYSICIAN Family Medicine
DX: R11.10 Vomiting, unspecified (principal); E86.0 Dehydration; K59.00 Constipation, unspecified
CPT/HCPCS: 99281; 80053; 84703; 85025

== ENCOUNTER → 2024-10-05 09:59 | Outpatient (REF) | payer OTHER, SELFPAY | LOC: HWRAD 09:59 | PROVIDERS: ATTENDING PHYSICIAN Obstetrics & Gynecology; PRIMARYCARE PHYSICIAN Family Medicine | DX: N83.202 Unspecified ovarian cyst, left side (principal); R19.8 Other specified symptoms and signs involving the digestive system and abdomen | CPT/HCPCS: 76830; 76856 ==

== ENCOUNTER 2024-10-24 21:55 | Emergency (ER) | payer OTHER, SELFPAY ==
[2024-10-24 21:56] VITALS: BP 130/91
[2024-10-24 22:30] LABS: Hematocrit 46.3 % (37.0-47.0); Hemoglobin 16.7 g/dL (12.0-16.0); Mean Corp Hgb Conc. 36.1 g/dL (33.0-37.0); Mean Corpuscular Volume 81.9 fL (81.0-99.0); Nucleated Red Blood Cells % 0 %; Platelet Count 306 10^3/uL (130-400); Red Cell Dist. Width 13.2 % (11.5-14.5)
[2024-10-24 22:35] LABS: ALT (SGPT) 92 U/L (0-35); AST (SGOT) 56 U/L (14-36); Albumin 5.0 g/dl (3.5-5.0); Alkaline Phosphatase 63 U/L (38-126); Blood Urea Nitrogen 5 mg/dl (7-17); Calcium 10.9 mg/dl (8.4-10.2); Carbon Dioxide 21 mmol/L (22-30); Glucose 108 mg/dl (70-99); Lipase 72 U/L (23-300); Total Protein 8.5 g/dl (6.3-8.2); eGFR > 60.00
[2024-10-24 23:00] LABS: Chloride 110 mmol/L (98-107); Potassium 3.8 mmol/L (3.5-5.1); Sodium 143 mmol/L (135-145)
[2024-10-25] VITALS: BMI 30.3
[2024-10-25] MEDS: NSS 1000 IV (00:06)
[2024-10-25] MEDS: ZOFRAN 4 MG IV (00:07)
[2024-10-25] MEDS: TRANSDERM-SCOP 1 PATCH TRANSDERM (00:26)
--- NOTE | 2024-10-25 01:35 | ED.GENMED ---
History of Present Illness
General
Chief Complaint: Dehydration Symptoms
Source: patient
Exam Limitations: none
Time Seen by Provider: 10/24/24 23:30
Nursing documentation reviewed up to this point in time: agreed with
History of Present Illness
History of Present Illness:
34-year-old female presenting the emergency department today with concerns of nausea and vomiting. Has not had her scopolamine that she typically uses daily for motion sickness. Also has been using Zepbound which causes nausea denies additional
symptoms otherwise
Past History
Past History
ED Past Medical History: Cancer (Cervical), Psychiatric (Depression) and Other (UTI, kidney stones, migraine)
ED Past Surgical History: Cholecystectomy, and Gynecological (cryosurgery and ablation for abnormal cervical cells)
Social History
Tobacco: Smoker
Alcohol: Occasional
Drug: None
Personal:
Living: with family
Employment: Employed
Family History
Family History: Diabetes and Other (Kidney stones)
Review of Systems
Review of Systems
Allergies reviewed?: Yes
All Other Systems: ROS reviewed and negative except as documented in HPI and ROS
Phy Exam
Physical Exam
Physical Exam:
GENERAL: Alert , in no apparent distress
EYE: pupils equal and reactive
NECK: Supple, no significant adenopathy.
ENT: o/p clr, mmm.
CARDIAC: Regular rate and rhythm .
LUNGS: Clear breath sounds bilaterally, no acute respiratory distress, no wheezes/rales/rhonchi
ABDOMEN: Soft, without focal tenderness, no r/g, no cvat
NEUROLOGICAL: Alert and oriented, no focal neuro deficits
SKIN: Warm and dry, skin intact.
MUSCULOSKELETAL: No edema, well perfused.
PSYCH: Normal and appropriate interaction.
Course
Orders/Labs/Results
Orders:
Orders
10/24/24 22:03
Complete Blood Count/With Diff Urgent
Comprehensive Metabolic Panel Urgent
Lipase Urgent
10/24/24 23:52
0.9% Sodium Chloride 1000 ml [Nss] 1,000 ml IV BOLUS
Ondansetron Injectable [Zofran] 4 mg IV NOW STA
Scopolamine [Transderm-Scop] 1 patch TRANSDERM NOW STA
10/24/24 23:59
Scopolamine [Transderm-Scop] 1 patch TRANSDERM NOW STA
Abnormal Lab Results
10/24/24
22:03
RBC 5.65 H 10^6/uL
(4.20-5.40)
Hgb 16.7 H g/dL
(12.0-16.0)
MPV 12.9 H fL
(7.4-10.4)
Chloride 110 H mmol/L
(98-107)
Carbon Dioxide 21 L mmol/L
(22-30)
BUN 5 L mg/dl
(7-17)
Glucose 108 H mg/dl
(70-99)
Calcium 10.9 H mg/dl
(8.4-10.2)
AST 56 H U/L
(14-36)
ALT 92 H U/L
(0-35)
Total Protein 8.5 H g/dl
(6.3-8.2)
10/24/24 22:03
10/24/24 22:03
Vital Signs
Initial and Last Documented VS:
Initial Vital Signs
Temp Pulse Resp BP Pulse Ox
97.7 F 98 16 130/91 98
10/24/24 21:56 10/24/24 21:56 10/24/24 21:56 10/24/24 21:56 10/24/24 21:56
Last Documented Vital Signs
Temp Pulse Resp BP Pulse Ox
97.7 F 98 16 130/91 98
10/24/24 21:56 10/24/24 21:56 10/24/24 21:56 10/24/24 21:56 10/24/24 21:56
MDM/Problems Addressed
MDM/Problems Addressed:
34-year-old female presenting to the emergency department today with concerns of nausea and vomiting. No abdominal pain. Vital signs normal on arrival. Patient was given Zofran and fluids with significant improvement of symptoms. Labs with
several abnormalities to the liver function test but no acutely emergent findings. Had significant improvement of symptoms here. Stable for close outpatient follow-up. Return precautions given.
*Pulse Oximetry
SaO2: 98
Oxygen Mode of Delivery: Room air
Patient hypoxic: no (98)
*Critical Care Note
Total Time (30-74mins, 75-104mins- exclusive of procedures): Not Applicable
ED Attending Note
-
Portions of this chart may have been created with voice recognition software.� Occasional wrong word or��sound alike� substitutions may have occurred due to the inherent limitations of voice recognition software.
Discharge Plan
Departure
Patient Disposition: Home (Routine Discharge)
Date of Disposition: 10/25/24
Time of Disposition: 01:39
Patient with high blood pressure during this ER visit?: No
Condition: Good
Covid-19: Not Applicable
Discharge Problem:
Vomiting
Instructions: Nausea and Vomiting, Adult (DC)
Prescriptions:
New
ondansetron 4 mg tablet,disintegrating
4 mg PO Q6H PRN (Reason: nausea and vomiting) Qty: 7 0RF
No Action
dextroamphetamine-amphetamine [Adderall] 20 MG tablet
20 mg PO TID
Patient Comments:
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
lorazepam 0.5 MG tablet
0.5 mg PO PRN PRN (Reason: anxiety)
ondansetron 4 MG tablet,disintegrating
4 mg PO TIDPRN PRN (Reason: nausea/vomiting) Qty: 12 0RF
ketorolac 10 mg tablet
10 mg PO Q8H PRN (Reason: Pain) 1 Days Qty: 30 0RF
cyclobenzaprine 10 mg tablet
10 mg PO BID PRN (Reason: back pain, spasms) Qty: 14 0RF
amoxicillin-pot clavulanate 875-125 mg tablet
1 tab PO BID Qty: 14 0RF
methylprednisolone [Medrol (Mt)] 4 mg tablets,dose pack
See Rx Instructions .ROUTE .COMPLEX Qty: 21 0RF
Rx Instructions:
orally per package directions
Referrals:
Rogelio Shepherd MD [Family Provider]
Activity Restrictions/Additional Instructions:
You came to the emergency department today with concerns of vomiting. Here you had a reassuring assessment. Please use the Zofran as needed and follow-up closely as an outpatient. Return for any worsening, new or concerning symptoms.
Interventions
Interventions:
*Risk Screen - Suicide Last Done: 10/24/24 21:56
*General Assessment Last Done: 10/24/24 21:56
*Neglect/Abuse Screening Last Done: 10/24/24 21:56
*ED- Fall Risk Assessment Last Done: 10/25/24 00:11
*ED COVID-19 Vaccine History Last Done: 10/25/24 00:11
ED- Cardiac Assessment Last Done: 10/25/24 00:10
ED- Neurological Assessment Last Done: 10/25/24 00:10
ED- Pulmonary Assessment Last Done: 10/25/24 00:10
Discharge Date and Time
Print Language: PORTUGUESE
[2024-10-25 01:57] VITALS: BP 126/80
[2024-10-25 02:09] LABS: HCG, Serum Qualitative Screen Negative
== END 2024-10-25 01:57 | disposition home or self-care (01) ==
LOC: EMR 21:55
PROVIDERS: Emergency Medicine; EMERGENCY PHYSICIAN Emergency Medicine; FAMILY PHYSICIAN Family Medicine
DX: R11.2 Nausea with vomiting, unspecified (principal); F17.200 Nicotine dependence, unspecified, uncomplicated; Z85.41 Personal history of malignant neoplasm of cervix uteri
CPT/HCPCS: 99284; 96374; 96361; 80053; 83690; 84703; 85025